=== PATIENT | female | born 1965 | race Two or more races ===

== ENCOUNTER 2016-10-11 16:38 | Outpatient (CLI) | payer OTHER ==
--- NOTE | 2016-10-11 18:40 | MRI Report ---
EXAM: RIGHT KNEE MRI WITHOUT CONTRAST EXAM DATE: 10/11/2016 05:08 p.m. CLINICAL HISTORY: Pain in the right knee. COMPARISON: None. TECHNIQUE: Multiplanar, multisequence T1-weighted and fluid-sensitive sequences of the knee without c ontrast. Other: None. FINDINGS: Bones: No fractures or subluxations. No marrow edema. No bone lesions. 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 The medial and lateral compartments are relatively spared. Medial Meniscus: The medial meniscus is intact. Lateral Meniscus: The lateral meniscus is intact. Cruciate Ligaments: The anterior and posterior cruciate ligaments are intact. Collateral Ligaments: The medial collateral and lateral collateral ligamentous structures are intact. Tendons: The quadriceps, patellar, semimembranosus, and popliteus tendons are unremarkable. Musculature: No edema or fatty atrophy. Other: Small joint effusion. No popliteal cyst. Tiny ganglion cyst is seen at the junction of the ant erior horn lateral meniscus and the transverse meniscal ligament, of doubtful consequence. Please see series 501 image 15. No loose bodies. The medial and lateral retinacula are intact. There is a smal l amount of edema in Hoffa's fat pad. IMPRESSION: 1. 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 Th e medial and lateral compartments are relatively spared. 2. Menisci, cruciates and collaterals appear unremarkable. 3. Small joint effusion. Tiny ganglion cysts seen in the anterior knee. Small amount of edema in Yoel 's fat pad. [facility] MUSCULOSKELETAL RADIOLOGY SECTION Referring Provider Line: [phone] SITE ID: [id number]
== END 2016-10-11 16:39 | disposition home or self-care (01) ==
LOC: DI 16:38
DX: M22.41 Chondromalacia patellae, right knee (principal); M25.461 Effusion, right knee; M67.461 Ganglion, right knee

== ENCOUNTER 2020-01-13 12:47 | Outpatient (CLI) | payer OTHER ==
--- NOTE | 2020-01-13 16:33 | MRI Report ---
PROCEDURE: Lumbar Spine W/O INDICATIONS: LOW BACK PAIN TECHNIQUE: Noncontrast sagittal T1 spin echo and T2 fast echo, sagittal STIR, axial T1 and T2 fast spin echo thr ough the lumbar spine. In cases with scoliosis, additional coronal T2 fast spin echo may be performe d. COMPARISON: None. FINDINGS: Image quality: Excellent. Alignment and Curvature: There is normal bony alignment. Bone Marrow: Marrow is of normal overall signal. Schmorl's node with minimal reactive endplate monsivais e in the superior endplate of S1. No acute vertebral body compression fractures. Spinal Cord: Conus medullaris terminates at the L1 level. Visualized cord demonstrates normal signa l and size. Paraspinous Soft Tissues: No paravertebral masses. Discs: Mild to moderate desiccation is present throughout the lumbar spine. L1-L2: Mild disc bulge with asymmetric right-sided prominence. There is minimal narrowing of the r ight lateral recess secondary to disc bulge. Minimal right foraminal narrowing with facet hypertrophy . L2-L3: No disc bulge or spinal stenosis. Minimal bilateral foraminal narrowing with facet and liga mentum flavum hypertrophy. L3-L4: Minimal disc bulge without spinal stenosis. [id number] bilateral foraminal narrowing w ith facet and ligamentum flavum hypertrophy. L4-L5: Mild disc bulge with severe spinal stenosis. There is moderate narrowing through the subarti cular recesses bilaterally. Prominent facet and ligamentum flavum hypertrophy are present. L5-S1: Mild disc bulge without spinal stenosis. Minimal right foraminal narrowing. IMPRESSION: 1. Severe spinal stenosis L4-5 secondary to disc bulge with contributing effect of prominent facet/li gamentum flavum arthropathy. 2. Moderate narrowing through the subarticular recesses L4-5 as well as [id number] bilateral fo raminal narrowing at L3-4 and minimal right foraminal narrowing at L5-S1 secondary to facet arthropat hy. Reviewed by: Yee Santana MD on 01/13/2020 4:31 PM PDT Approved by: Yee Santana MD on 01/13/2020 4:31 PM PDT Station ID: [id number]
--- NOTE | 2020-01-13 16:50 | MRI Report ---
PROCEDURE: Hip LT W/O INDICATIONS: LOW BACK PAIN TECHNIQUE: Noncontrast coronal T1 spin echo and STIR through the bony pelvis. Coronal and axial T2 fast spin ec ho with fat saturation, sagittal T1 spin echo, and oblique axial T2 fast spin echo with fat saturatio n through the hip. COMPARISON: None. FINDINGS: Image quality: Excellent. Bones and joints: There is severe bilateral hip joint space narrowing. Moderate subchondral degenerat rachel marrow edema and subchondral cyst formation within the right acetabulum. Moderate degenerative ma rrow edema within the left superior acetabulum. Mild degenerative marrow edema within the left superi or femoral head. No intraosseous lesions or fractures. No avascular necrosis of the femoral heads. The visualized lower lumbar spine appears normally aligned. Tendons: The gluteus medius and minimus tendons appear intact, without associated muscle atrophy. T he iliopsoas tendon appears intact, without adjacent bursal fluid collections. The origin of the ham string tendon is intact at the ischial tuberosity. Labrum and cartilage: High T2 signal intensity is seen within the bilateral anterosuperior hip labral regions. Cartilage surface of the femoral head appears of normal thickness. The alpha angle of the femur is within normal limits at less than 55 degrees. Soft tissues: Visualized muscles demonstrate normal bulk and internal signal. The proximal sciatic neurovascular bundle appears normal adjacent to the hamstring tendons. No free pelvic fluid. Bladde r wall thickness is normal. Genitourinary structures and bowel loops appear normal where visualized. IMPRESSION: 1. Severe bilateral hip osteoarthritis. 2. Degenerative bilateral hip labral tearing. Reviewed by: Jere Plunkett MD on 01/13/2020 4:49 PM PDT Approved by: Jere Plunkett MD on 01/13/2020 4:49 PM PDT Station ID: [id number]
== END 2020-01-13 12:48 | disposition home or self-care (01) ==
LOC: DI 12:47
PROVIDERS: ATTEND Family Medicine
DX: M51.26 Other intervertebral disc displacement, lumbar region (principal); M48.061 Spinal stenosis, lumbar region without neurogenic claudication; M16.0 Bilateral primary osteoarthritis of hip
CPT/HCPCS: 72148

== ENCOUNTER 2022-09-15 06:57 | Outpatient (CLI) | payer OTHER ==
--- NOTE | 2022-09-15 10:46 | MRI Report ---
PROCEDURE: LUMBAR SPINE WO INDICATIONS: LOW BACK PAIN TECHNIQUE: Noncontrast sagittal T1 spin echo and T2 fast echo, sagittal STIR, axial T1 and T2 fast spin echo thr ough the lumbar spine. In cases with scoliosis, additional coronal T2 fast spin echo may be performe d. COMPARISON: None. FINDINGS: Image quality: Excellent. Alignment and Curvature: Is grade 1 anterolisthesis of L4 on L5. Bone Marrow: Marrow is of normal overall signal. No acute vertebral body compression fractures. Spinal Cord: Conus medullaris terminates at the L1 level. Visualized cord demonstrates normal signa l and size. Paraspinous Soft Tissues: No paravertebral masses. T12-L1: Normal in appearance. L1-L2: Right subarticular/foraminal protrusion, without significant spinal canal or neural foramin al narrowing. L2-L3: Diffuse disc bulge. Mild facet hypertrophy and ligamentum flavum hypertrophy. L3-L4: Mild disc bulge. Mild bilateral neural foraminal narrowing. L4-L5: Broad-based disc bulge. Facet hypertrophy and ligamentum flavum hypertrophy cause moderate t o severe spinal canal narrowing. Prominent left-sided nerve root (series 6, image 35). Moderate to [place] right and moderate left neural foraminal narrowing. L5-S1: Asymmetric posterior disc bulge contacting the approaching S1 nerve roots. Mild ligamentum f lavum hypertrophy and facet hypertrophy. IMPRESSION: No significant interval change in degenerative disc disease. Of note, there remains moderate to sever e spinal canal narrowing at L4-5 due to a broad-based disc bulge, facet hypertrophy and ligamentum fl avum hypertrophy. Additionally, there is moderate to severe right and moderate left neural foraminal narrowing at this level. Reviewed by: Stanislav Arreaga on 09/15/2022 9:45 AM KEITH Approved by: Stanislav Arreaga on 09/15/2022 9:45 AM KEITH Station ID: [id number]
== END 2022-09-15 06:58 | disposition home or self-care (01) ==
LOC: DI 06:57
PROVIDERS: ATTEND Family Medicine
DX: M51.36 Other intervertebral disc degeneration, lumbar region (principal); M48.061 Spinal stenosis, lumbar region without neurogenic claudication

== ENCOUNTER 2023-06-04 11:45 | Outpatient (CLI) | payer OTHER | END 2023-06-04 12:00 | disposition home or self-care (01) | LOC: LAB.N 11:45 | PROVIDERS: ATTEND Physician Assistant Medical | DX: R30.0 Dysuria (principal) | CPT/HCPCS: 87077; 87086; 87181 ==

== ENCOUNTER 2023-06-19 07:45 | Outpatient (CLI) | payer OTHER ==
[2023-06-19 12:32] LABS: HCT - HEMATOCRIT 43.9 % (37.0-47.0); HGB - HEMOGLOBIN 14.2 g/dL (12.0-16.0); MEAN CORPUSCULAR HEMOGLOBIN 30.4 pg (27.0-31.0); MEAN CORPUSCULAR HGB CONC 32.3 g/dL (32.0-36.0); MEAN PLATELET VOLUME 10.6 fL (7.9-10.8); RED BLOOD COUNT 4.67 10^6/uL (4.20-5.40)
[2023-06-19 14:39] LABS: ALBUMIN 3.9 g/dL (3.2-5.5); ALBUMIN/GLOBULIN RATIO 1.7 (1.0-2.2); BILIRUBIN,TOTAL 0.4 mg/dL (0.2-1.0); CALCIUM 9.4 mg/dL (8.5-10.3); CREATININE 0.9 mg/dL (0.6-1.3); POTASSIUM 4.4 mmol/L (3.5-4.5); TOTAL PROTEIN 6.2 g/dL (6.4-8.9)
== END 2023-06-19 08:00 | disposition home or self-care (01) ==
LOC: LAB.N 07:45
PROVIDERS: ATTEND Physician Assistant
DX: M54.9 Dorsalgia, unspecified (principal)
CPT/HCPCS: 36415; 80053; 85027; 87077; 87086; 87181